=== PATIENT | male | born 1965 | race Caucasian/White ===

== ENCOUNTER 2024-08-13 13:04 | Observation (INO) ==
[2024-08-13] MEDS: ASPIRIN 81 MG CHEWTAB PO ONE (13:14)
[2024-08-13] MEDS: ZOFRAN INJ 4 MG VIAL IVP ONE (13:14)
[2024-08-13 13:17] LABS: BASOPHILS # (AUTO) 0.2 X10^3/uL (0.0-0.1); BASOPHILS % (AUTO) 1.7 % (0.2-1.0); EOSINOPHILS % (AUTO) 0.3 % (0.9-2.9); HEMATOCRIT 46.6 % (42.0-54.0); HEMOGLOBIN 16.4 g/dL (13.5-18.0); MEAN CORPUSCULAR HEMOGLOBIN 31.5 pg (27.0-34.0); MEAN CORPUSCULAR HGB CONC 35.3 g/dL (33.0-35.0); MEAN CORPUSCULAR VOLUME 89.3 fL (80.0-100.0); MEAN PLATELET VOLUME 7.4 fL (7.4-11.0); MONOCYTES # (AUTO) 0.5 x10^3/uL (0.3-0.8); MONOCYTES % (AUTO) 4.9 % (0.0-13.0); NEUTROPHILS % (AUTO) 83.1 % (42.0-75.0); PLATELET COUNT 231 X10^3/uL (150.0-450.0); RED BLOOD COUNT 5.22 X10^6/uL (4.7-6.0); RED CELL DISTRIBUTION WIDTH 12.8 % (11.6-16.5); WHITE BLOOD COUNT 9.7 X10^3/uL (3.6-10.0)
--- NOTE | 2024-08-13 13:22 | EKG ---
Test Reason : SOB Blood Pressure : */* mmHG Vent. Rate : 93 BPM Atrial Rate : 93 BPM P-R Int : 166 ms QRS Dur : 96 ms QT Int : 348 ms P-R-T Axes : 44 84 36 degrees QTc Int : 432 ms Sinus rhythm with occasional premature ventricular complexes Otherwise normal ECG No previous ECGs available Confirmed by Corey Palacio MD ([id number]) on 08/14/2024 6:53:21 AM Referred By: Confirmed By: Corey Palacio MD
[2024-08-13] MEDS: MORPHINE SULFATE INJ 4 MG IVP ONE (13:23)
[2024-08-13] MEDS: MORPHINE SULFATE INJ 2 MG INJ IVP ONE ×2 (13:23→13:38)
[2024-08-13 13:31] LABS: ALANINE AMINOTRANSFERASE 27 Units/L (12-78); ALBUMIN 4.2 g/dL (3.4-5.0); ALKALINE PHOSPHATASE 105 Units/L (46-116); ASPARTATE AMINO TRANSFERASE 17 Units/L (15-37); BLOOD UREA NITROGEN 21 mg/dL (7-18); CARBON DIOXIDE 25.2 mmol/L (21-32); CHLORIDE 105 mmol/L (98-107); COR NA(FOR HYPERGLY) 139 mmol/L (136-145); CREATINE KINASE 71 Units/L (39-308); CREATININE 1.11 mg/dL (0.70-1.30); GLUCOSE 125 mg/dL (65-99); POTASSIUM 4.3 mmol/L (3.5-5.1); SODIUM 138 mmol/L (136-145); TOTAL PROTEIN 8.2 g/dL (6.4-8.2); eGFR NON BLACK RACES > 60 (>60)
--- NOTE | 2024-08-13 13:46 | DR.CP ---
HPI Time Seen Time Seen by Provider: 08/13/24 13:34 PCP Primary Care Physician: Tierra Kirkland Complaint Chief Complaint Doctor Comments: pain in mid chest Chief Complaint:: Pt states that last pm he started having mid-sternal chest pain that is non-radiating. Pt describes the pain as making him feel like it is hard to breath but he denies shortness of breath. Pt denies any associated symptoms. Pts reports that he has taken asa 81 mg, tylenol 1000 mg, motrin 800 mg, and klonipin 0.5 mg prior to arrival. Pt states that these medications did help some but then the pain came back worse. Pt reports that he had an orthopedic surgery on his right arm on August 10, 2024 Self Treatment fo Chief Complaint: asa 81 mg tylenol 1000 mg motrin 800 mg klonipin 0.5 mg COVID-19 Coronavirus risk:travel/contact w/high risk person: No Has patient experienced Coronavirus symptoms: No Reviewed Nurses Notes Review: Yes Source History Provided: Patient Mode of Arrival Mode of Arrival: Ambulatory Timing Onset of Chief Complaint: 08/12/24 Came on: Suddenly Pain: Present Now Duration Duration: Intermittent Duration: Minutes Location Location of Chest Pain: Chest Chest Pain Radiation Location: None Context Onset: At rest and Other (after eating ) Cardiac Risk Factors: Hyperlipidemia and HTN PE Risk Factors: Recent Trauma/Surgery History of: None and Aspirin in last 24 hours Prehospital Care: ASA Quality Quality: Sharp Severity Severity: Severe Modifying Factors Worsens: Nothing Impoves: Nothing Associated Signs and Symptoms Associated Signs and Symptoms: Shortness of Breath PMH PMH Past Medical History: Yes Past Medical History: Arthritis and Hypertension Past Medical History Comment: PTSD Past Surgical History: Yes Surgical History: Appendectomy, Ortho Surgery, Tonsillectomy and Other Past Surgical History Comment: hernia repair jaw surgery Family History History of Family Medical Conditions: Yes Family Medical History: Cancer, [place] and Coronary Artery Disease Social History Alcohol Use: None Do you use any recreational Drugs:: No Lives With: Spouse Travel Risk Coronavirus risk:travel/contact w/high risk person: No Has patient experienced Coronavirus symptoms: No Infectious screening In the last 2 months have you had wt loss of >10#?: NO Have you had fever, night sweats or hemotysis?: No Have you traveled outside the country in the last 6 months?: No Isolation: Standard ROS Review of Systems Constitutional: Irritable and Fatigue Eyes: No Symptoms Reported ENTM: No Symptoms Reported Respiratoy: Short of Breath Cardiovascular: Chest Pain Gastrointestinal/Abdominal: No Symptoms Reported Genitourinary: No Symptoms Reported Neurological: No Symptoms Reported Musculoskeletal: No Symptoms Reported Integumentary: No Symptoms Reported PE Vitals Vitals: Vital Signs Temperature 98.2 F Pulse Rate 85 Pulse Rate 86 Pulse Rate 85 Pulse Rate 84 Pulse Rate 83 Pulse Rate 83 Pulse Rate 85 Pulse Rate 89 Pulse Rate 86 Pulse Rate 95 Pulse Rate 97 Pulse Rate 96 Respiratory Rate 15 Respiratory Rate 0 Respiratory Rate 15 Respiratory Rate 10 Respiratory Rate 14 Respiratory Rate 14 Respiratory Rate 13 Respiratory Rate 13 Respiratory Rate 21 Respiratory Rate 22 Respiratory Rate 19 Respiratory Rate 19 Respiratory Rate 19 Respiratory Rate 23 Respiratory Rate 23 Respiratory Rate 13 Respiratory Rate 9 Respiratory Rate 20 Blood Pressure 145/86 Blood Pressure 142/86 Blood Pressure 140/74 Blood Pressure 140/74 Blood Pressure 140/74 Blood Pressure 151/89 Blood Pressure 138/83 Blood Pressure 146/91 Blood Pressure 155/100 O2 Sat by Pulse Oximetry 96 O2 Sat by Pulse Oximetry 95 O2 Sat by Pulse Oximetry 96 O2 Sat by Pulse Oximetry 93 O2 Sat by Pulse Oximetry 94 O2 Sat by Pulse Oximetry 94 O2 Sat by Pulse Oximetry 94 O2 Sat by Pulse Oximetry 93 O2 Sat by Pulse Oximetry 94 O2 Sat by Pulse Oximetry 95 O2 Sat by Pulse Oximetry 95 O2 Sat by Pulse Oximetry 94 O2 Sat by Pulse Oximetry 95 General Limitations: No Limitations General Appearance: In Distress Head Head Exam: Normal Inspection and Atraumatic Eyes Eye exam: Normal Appearance, PERRL and EOMI ENT ENT Exam: Normal Exam and Mucous Membranes Moist Chest Chest Inspection: Normal Inspection and Symmetric Chest Wall Rise Respiratory Respiratory Exam: Normal Lung Sounds Bilat Respiratory Exam: Bilateral: Clear to Auscultation Cardiovascular Cardiovascular Exam: +S1 and +S2 Abdominal Exam Abdominal Exam: Normal Inspection, Normal Bowel Sounds, Soft and Tenderness Abdominal Tenderness: RUQ Extremities Extremities Exam: Other (right upper ext recent surgery in splint with dressing ) Skin Skin Exam: Normal Color MDM Differential Diagnosis Differential Diagnosis: Angina, Cholelithasis, Esophageal Reflux/Spasm, Myocardial Infarction and Pulmonary Embolus COURSE Treatment Treatment: labs ,ekg ct abdomen /pelvis ,IV morphine,asa G i cOCKTAIL, Reevaluation 1st: Unchanged ROR Labs Reviewed Laboratory Results Reviewed?: Yes 08/13/24 13:11 08/13/24 13:11 Laboratory: WBC 9.7 X10^3/uL (3.6-10.0) 08/13/24 13:11 RBC 5.22 X10^6/uL (4.7-6.0) 08/13/24 13:11 Hgb 16.4 g/dL (13.5-18.0) 08/13/24 13:11 Hct 46.6 % (42.0-54.0) 08/13/24 13:11 MCV 89.3 fL (80.0-100.0) 08/13/24 13:11 MCH 31.5 pg (27.0-34.0) 08/13/24 13:11 MCHC 35.3 g/dL (33.0-35.0) H 08/13/24 13:11 RDW 12.8 % (11.6-16.5) 08/13/24 13:11 Plt Count 231 X10^3/uL (150.0-450.0) 08/13/24 13:11 MPV 7.4 fL (7.4-11.0) 08/13/24 13:11 Neut % (Auto) 83.1 % (42.0-75.0) H 08/13/24 13:11 Lymph % (Auto) 10.0 % (21.0-51.0) L 08/13/24 13:11 [place] % (Auto) 4.9 % (0.0-13.0) 08/13/24 13:11 Eos % (Auto) 0.3 % (0.9-2.9) L 08/13/24 13:11 Baso % (Auto) 1.7 % (0.2-1.0) H 08/13/24 13:11 Neut # (Auto) 8.0 x10^3/uL (2.2-4.8) H 08/13/24 13:11 Lymph # (Auto) 1.0 X10^3/uL (1.3-2.9) L 08/13/24 13:11 [place] # (Auto) 0.5 x10^3/uL (0.3-0.8) 08/13/24 13:11 Eos # (Auto) 0.0 x10^3/uL (0.0-0.2) 08/13/24 13:11 Baso # (Auto) 0.2 X10^3/uL (0.0-0.1) H 08/13/24 13:11 Absolute Nucleated RBC 0.1 /100WBC 08/13/24 13:11 D-Dimer 0.42 ug/ml (0.0-0.57) 08/13/24 13:11 Sodium 138 mmol/L (136-145) 08/13/24 13:11 Corrected Sodium 139 mmol/L (136-145) 08/13/24 13:11 Potassium 4.3 mmol/L (3.5-5.1) 08/13/24 13:11 Chloride 105 mmol/L (98-107) 08/13/24 13:11 Carbon Dioxide 25.2 mmol/L (21-32) 08/13/24 13:11 BUN 21 mg/dL (7-18) H 08/13/24 13:11 Creatinine 1.11 mg/dL (0.70-1.30) 08/13/24 13:11 Est GFR (MDRD) Af Amer > 60 (>60) 08/13/24 13:11 Est GFR (MDRD) Non-Af > 60 (>60) 08/13/24 13:11 Glucose 125 mg/dL (65-99) H 08/13/24 13:11 Calcium 9.0 mg/dL (8.5-10.1) 08/13/24 13:11 Corrected Calcium TNP 08/13/24 13:11 Total Bilirubin 1.30 mg/dL (0.2-1.0) H 08/13/24 13:11 Direct Bilirubin 0.30 mg/dL (0-0.2) H 08/13/24 13:11 AST 17 Units/L (15-37) 08/13/24 13:11 ALT 27 Units/L (12-78) 08/13/24 13:11 Alkaline Phosphatase 105 Units/L (46-116) 08/13/24 13:11 Creatine Kinase 71 Units/L (39-308) 08/13/24 13:11 Troponin I High Sens 6.5 ng/L (4.0-60.0) 08/13/24 15:05 B-Natriuretic Peptide 23.9 pg/mL (0-79) 08/13/24 15:05 Total Protein 8.2 g/dL (6.4-8.2) 08/13/24 13:11 Albumin 4.2 g/dL (3.4-5.0) 08/13/24 13:11 Globulin 4.0 g/dL (2.5-4.5) 08/13/24 13:11 Albumin/Globulin Ratio 1.1 Ratio (1.1-2.1) 08/13/24 13:11 Opioid Opioid Risk Tool Age (Jasvir box if 16-45): No History of Preadolescent Sexual Abuse: No Total: 0 Total Score Risk Category: Low Risk Copyright: [facility] predicting aberrant behaviors Discharge Plan Diagnosis Discharge Problem: Pleurisy, Retrosternal chest pain Discharge Plan Patient Disposition: ADMITTED INPATIENT Condition: Stable Prescriptions: No Action atorvastatin 20 MG tablet 20 mg PO HS Qty: 30 3RF Rx Instructions: TAKE 1 TABLET BY MOUTH AT BEDTIME. lisinopril [Zestril] 5 MG tablet 5 mg PO DAILY Qty: 30 3RF Rx Instructions: TAKE 1 TABLET BY MOUTH DAILY. ketorolac 10 mg tablet 10 mg PO TID PRN (Reason: pain) Qty: 20 0RF Health Concerns: Post Hospitalization: new medications and changes needed to prevent readmission or further decline. Pt educated and given instructions on all concerns. Plan of Treatment: Continue with present treatment and follow up plan. Pt is to keep follow up appointment as instructed and take medications as ordered. Orders to Discharge Patient Discharge Orders: Transfer (Routine); Ordered 08/13/24 Ordered By: David Caldwell Follow ups/Referrals Follow ups/Referrals: QUYEN KIRKLAND [Primary Care Provider, Unknown] - 3 days Instructions Stand Alone Forms: Find Help Web Site, Post Hospital Follow Up Care Print Language: ICELANDIC ADDITIONAL NOTES Additional Notes Additional Notes: pt cont to experience pain in chest substernal and when he takes deep breath. cardiac enzymes x 2 neg , BNP neg .cxr ? fluid / infiltrate . CT abdomen /pelvis. no acute pathology.Spoke with dr Howard .Agreed to have patient admitted for observation .repeat troponin in 6 hrs
[2024-08-13] MEDS: LEVSIN/MAALOX/LIDOC VISC PO ONE (14:29)
--- NOTE | 2024-08-13 14:29 | CT ---
EXAM: CT ABDOMEN AND PELVIS WITH CONTRAST HISTORY: ABDOMINAL PAIN ; COMPARISON: None. TECHNIQUE: Axial CT images were obtained through the abdomen and pelvis after the intravenous administration of contrast. Coronal reformatted images were included. Informed written consent was obtained prior to contrast administration. All CT scans at this facility use dose modulation, iterative reconstruction, and/or weight based dosing when appropriate to reduce radiation dose to as low as reasonably achievable. FINDINGS: LOWER THORAX: Hypoventilatory changes of the lung bases. ABDOMEN: LIVER: Within normal limits. GALLBLADDER: Within normal limits. SPLEEN: Within normal limits. PANCREAS: Within normal limits. KIDNEYS: Tiny subcentimeter renal cysts bilaterally ADRENAL GLANDS: Within normal limits. GI TRACT: Sigmoid diverticulosis. No inflammatory changes or obstruction LYMPH NODES: No abnormally enlarged nodes. VESSELS: Within normal limits. PERITONEUM / RETROPERITONEUM: No free gas. PELVIS: BLADDER: Within normal limits. GENITALS: Within normal limits. BONES: Within normal limits. IMPRESSION: No acute abnormality in the abdomen or pelvis. No obstruction. No inflammatory changes. Sigmoid diverticulosis without diverticulitis THIS IS AN ELECTRONICALLY VERIFIED FINAL REPORT 08/13/2024 2:26 PM - Electronically signed by Lambert Holder MD
--- NOTE | 2024-08-13 15:01 | RAD ---
EXAM: CHEST, 1 VIEW HISTORY: CHEST PAIN ; COMPARISON: Two views of the chest October 29, 2018 TECHNIQUE: 1 frontal view of the chest FINDINGS: Heart silhouette is enlarged. There is distention of the pulmonary vasculature. Interstitial and airspace opacities are present bilaterally. No pneumothorax. IMPRESSION: Decompensated congestive heart failure is favored. Pneumonia is not excluded radiographically. THIS IS AN ELECTRONICALLY VERIFIED FINAL REPORT 08/13/2024 2:57 PM - Electronically signed by Venkata Loredo MD
[2024-08-13] MEDS: TORADOL 30 MG VIAL IVP ONE (15:30)
[2024-08-13] MEDS ORDERED: PROTONIX INJ 40 MG VIAL ONE (16:01)
[2024-08-13] MEDS: DECADRON INJ IVP ONE (16:02)
[2024-08-13] MEDS: PROTONIX INJ 40 MG VIAL IVP ONE (16:02)
[2024-08-13] MEDS: DILAUDID INJ IVP ONE (16:02)
[2024-08-13 17:58] VITALS: BMI 28.0
[2024-08-13] MEDS: PROTONIX INJ 40 MG VIAL IVP SCH (20:23)
[2024-08-13] MEDS: ZOFRAN INJ 4 MG VIAL ONE (20:38)
[2024-08-13] MEDS: ASPIRIN 81 MG CHEWTAB ONE (20:38)
[2024-08-13] MEDS: OMNIPAQUE 350 mg/mL 100 mL BTL 100 ML ONE (20:39)
[2024-08-13] MEDS: DECADRON INJ ONE (20:39)
[2024-08-13] MEDS: TORADOL 15 MG VIAL IVP SCH (23:08)
[2024-08-14] MEDS: DILAUDID INJ ONE (03:32)
[2024-08-14 04:34] LABS: BASOPHILS % (AUTO) 0.2 % (0.2-1.0); EOSINOPHILS % (AUTO) 0.1 % (0.9-2.9); HEMATOCRIT 46.3 % (42.0-54.0); HEMOGLOBIN 16.6 g/dL (13.5-18.0); LYMPHOCYTES # (AUTO) 0.7 X10^3/uL (1.3-2.9); LYMPHOCYTES % (AUTO) 7.1 % (21.0-51.0); MEAN CORPUSCULAR HEMOGLOBIN 31.8 pg (27.0-34.0); MEAN CORPUSCULAR HGB CONC 35.7 g/dL (33.0-35.0); MEAN CORPUSCULAR VOLUME 88.8 fL (80.0-100.0); MEAN PLATELET VOLUME 7.7 fL (7.4-11.0); MONOCYTES # (AUTO) 0.6 x10^3/uL (0.3-0.8); MONOCYTES % (AUTO) 5.5 % (0.0-13.0); NEUTROPHILS # (AUTO) 8.8 x10^3/uL (2.2-4.8); NEUTROPHILS % (AUTO) 87.1 % (42.0-75.0); PLATELET COUNT 226 X10^3/uL (150.0-450.0); RED BLOOD COUNT 5.22 X10^6/uL (4.7-6.0); RED CELL DISTRIBUTION WIDTH 12.9 % (11.6-16.5); WHITE BLOOD COUNT 10.2 X10^3/uL (3.6-10.0)
[2024-08-14 04:47] LABS: ALANINE AMINOTRANSFERASE 28 Units/L (12-78); ALBUMIN 3.6 g/dL (3.4-5.0); ALKALINE PHOSPHATASE 92 Units/L (46-116); ASPARTATE AMINO TRANSFERASE 10 Units/L (15-37); BLOOD UREA NITROGEN 17 mg/dL (7-18); CALCIUM 8.7 mg/dL (8.5-10.1); CARBON DIOXIDE 25.5 mmol/L (21-32); CHLORIDE 103 mmol/L (98-107); COR NA(FOR HYPERGLY) 137 mmol/L (136-145); CREATININE 1.05 mg/dL (0.70-1.30); GLUCOSE 160 mg/dL (65-99); POTASSIUM 4.3 mmol/L (3.5-5.1); SODIUM 136 mmol/L (136-145); TOTAL PROTEIN 6.9 g/dL (6.4-8.2); eGFR NON BLACK RACES > 60 (>60)
--- NOTE | 2024-08-14 05:59 | RAD ---
PROCEDURE: Chest X-ray 1 View. HISTORY: chest pain; HX: HTN . TECHNIQUE: AP view. COMPARISON: 08/13/2024. TECHNICAL QUALITY: Satisfactory. FINDINGS: Normal size heart. Mediastinum and hilar regions show no masses or lymphadenopathy. Normal central vascularity. No pulmonary consolidation, masses, pleural fluid, or pneumothorax. No acute bony abnormality. IMPRESSION: No evidence of active cardiopulmonary disease. THIS IS AN ELECTRONICALLY VERIFIED FINAL REPORT 08/14/2024 5:55 AM - Electronically signed by Duke Loera MD
[2024-08-14] MEDS: VALTREX PO SCH (10:52)
[2024-08-14] MEDS: WELLBUTRIN XL 300 MG (DAILY) PO SCH (10:52)
[2024-08-14] MEDS: TOPROL XL PO SCH (10:52)
[2024-08-14] MEDS: NORVASC TAB 2.5 MG PO SCH (10:52)
[2024-08-14] MEDS: COZAAR PO SCH (10:52)
[2024-08-14] MEDS: NORVASC TAB 2.5 MG ONE (11:07)
[2024-08-14] MEDS: TORADOL 15 MG VIAL ONE (11:08)
[2024-08-14] MEDS: TYLENOL 325 MG TAB PO PRN (15:23)
--- NOTE | 2024-08-14 15:30 | DR.H&P ---
H&P History & Physical for Day of: H&P Date: 08/14/24 Chief Complaint Chief Complaint: chest pain History of Present Illness History of Present Illness: Seen with family in nurse at bedside. Sudden onset of midsternal, deep chest pain Thursday night. Lasted into Thursday and spouse convinced him to go to the ER. Had had right ulnar nerve decompression surgery last Thursday. Does have a history of sleep apnea and does not wear his CPAP. Also has history of exposure to burn pits in [place]. [facility] Reports well-controlled blood pressure at home. Did get Toradol and steroids in the ER. Does feel like he is breathing a little easier today than he was yesterday but still hurts to take a deep breath and has a discomfort that is underneath the distal part of his sternum. Troponins have been negative, chest x-ray benign, and ab/pelvis CT with contrast with no acute process. CT did show hypoventilatory effect of the bilateral lower lobes. He is agreeable to proceed with an EGD tomorrow. PMH, PSH, social history, and family history reviewed. ROS: 12 point ROS negative except as noted in HPI. Vitals, labs, and imaging reviewed. PE: Well-developed, well-nourished male in no acute distress. Hearing intact conversation, head NCAT, EOMI, cervical spine F ROM. Heart regular rate and rhythm. Lungs are clear with good respiratory effort but grimacing on deep breathing. Pain is not reproducible on palpation and percussion of the chest wall. No tenderness with pressure to the costosternal border bilaterally. Belly is soft and nontender with bowel sounds present. Landon sign negative. Mood and affect are appropriate. Right arm is in an elastic wrap. Past Medical History Past Medical History: Arthritis and Hypertension Past Surgical History Surgical History: Appendectomy, Ortho Surgery, Tonsillectomy and Other Family History Family Medical History: Cancer, [place] and Coronary Artery Disease Social History Does patient currently use any type of tobacco product: No Type of Tobacco Use: None Alcohol Use: None Drug Use: None Medications Home Medications: Home Medications Medication Instructions Recorded Confirmed Type amlodipine 2.5 mg tablet 2.5 mg PO QDAY 08/13/24 05/04/09 History bupropion HCl 300 mg 24 hr tablet, 300 mg PO QAM 08/1308/13/24 History extended release (Wellbutrin XL) losartan 100 mg tablet 100 mg PO QDAY 08/13/2407/16 History metoprolol succinate 25 mg 25 mg PO QDAY 08/13/2407/16 History tablet,extended release 24 hr valacyclovir 1 gram tablet 1,000 mg PO Q OTHER DAY 08/13/24 History (Valtrex) Allergies Allergies Allergy/AdvReac Type Severity Reaction Status Date / Time No Known Drug Allergies Allergy Verified 08/13/24 13:20 Labs 08/14/24 04:11 08/14/24 04:11 Labs: Laboratory WBC 10.2 X10^3/uL (3.6-10.0) H 08/14/24 04:11 RBC 5.22 X10^6/uL (4.7-6.0) 08/14/24 04:11 Hgb 16.6 g/dL (13.5-18.0) 08/14/24 04:11 Hct 46.3 % (42.0-54.0) 08/14/24 04:11 MCV 88.8 fL (80.0-100.0) 08/14/24 04:11 MCH 31.8 pg (27.0-34.0) 08/14/24 04:11 MCHC 35.7 g/dL (33.0-35.0) H 08/14/24 04:11 RDW 12.9 % (11.6-16.5) 08/14/24 04:11 Plt Count 226 X10^3/uL (150.0-450.0) 08/14/24 04:11 MPV 7.7 fL (7.4-11.0) 08/14/24 04:11 Neut % (Auto) 87.1 % (42.0-75.0) H 08/14/24 04:11 Lymph % (Auto) 7.1 % (21.0-51.0) L 08/14/24 04:11 [place] % (Auto) 5.5 % (0.0-13.0) 08/14/24 04:11 Eos % (Auto) 0.1 % (0.9-2.9) L 08/14/24 04:11 Baso % (Auto) 0.2 % (0.2-1.0) 08/14/24 04:11 Neut # (Auto) 8.8 x10^3/uL (2.2-4.8) H 08/14/24 04:11 Lymph # (Auto) 0.7 X10^3/uL (1.3-2.9) L 08/14/24 04:11 [place] # (Auto) 0.6 x10^3/uL (0.3-0.8) 08/14/24 04:11 Eos # (Auto) 0.0 x10^3/uL (0.0-0.2) 08/14/24 04:11 Baso # (Auto) 0.0 X10^3/uL (0.0-0.1) 08/14/24 04:11 Absolute Nucleated RBC 0.0 /100WBC 08/14/24 04:11 D-Dimer 0.42 ug/ml (0.0-0.57) 08/13/24 13:11 Sodium 136 mmol/L (136-145) 08/14/24 04:11 Corrected Sodium 137 mmol/L (136-145) 08/14/24 04:11 Potassium 4.3 mmol/L (3.5-5.1) 08/14/24 04:11 Chloride 103 mmol/L (98-107) 08/14/24 04:11 Carbon Dioxide 25.5 mmol/L (21-32) 08/14/24 04:11 BUN 17 mg/dL (7-18) 08/14/24 04:11 Creatinine 1.05 mg/dL (0.70-1.30) 08/14/24 04:11 Est GFR (MDRD) Af Amer > 60 (>60) 08/14/24 04:11 Est GFR (MDRD) Non-Af > 60 (>60) 08/14/24 04:11 Glucose 160 mg/dL (65-99) H 08/14/24 04:11 Calcium 8.7 mg/dL (8.5-10.1) 08/14/24 04:11 Corrected Calcium TNP 08/14/24 04:11 Total Bilirubin 0.90 mg/dL (0.2-1.0) 08/14/24 04:11 Direct Bilirubin 0.30 mg/dL (0-0.2) H 08/13/24 13:11 AST 10 Units/L (15-37) L 08/14/24 04:11 ALT 28 Units/L (12-78) 08/14/24 04:11 Alkaline Phosphatase 92 Units/L (46-116) 08/14/24 04:11 Creatine Kinase 49 Units/L (39-308) 08/13/24 22:05 Troponin I High Sens 8.7 ng/L (4.0-60.0) 08/13/24 22:05 B-Natriuretic Peptide 23.9 pg/mL (0-79) 08/13/24 15:05 Total Protein 6.9 g/dL (6.4-8.2) 08/14/24 04:11 Albumin 3.6 g/dL (3.4-5.0) 08/14/24 04:11 Globulin 3.3 g/dL (2.5-4.5) 08/14/24 04:11 Albumin/Globulin Ratio 1.1 Ratio (1.1-2.1) 08/14/24 04:11 Physical Exam Vital Signs: Vital Signs Temperature 98.3 F Temperature 97.6 F Pulse Rate [Right] 78 Pulse Rate [Right] 78 Respiratory Rate 16 Respiratory Rate 17 Respiratory Rate 16 Respiratory Rate 18 Blood Pressure [Left Arm] 133/78 Blood Pressure [Left Arm] 119/72 O2 Sat by Pulse Oximetry 95 O2 Sat by Pulse Oximetry 96 Assessment/Plan (1) Retrosternal chest pain: Narrative Support Text: Plan to proceed with an EGD tomorrow. Will consult general surgery. Continue Protonix. Status: Acute (2) Pleurisy: Narrative Support Text: Suspect this is the likely source of his pain. Continue Toradol. Will add on Tylenol p.o. as needed. Status: Acute (3) Essential (primary) hypertension: Narrative Support Text: Continue home meds Status: Acute
[2024-08-14] MEDS: TORADOL 30 MG VIAL ONE (19:10)
[2024-08-14] MEDS: MORPHINE SULFATE INJ 2 MG INJ ONE (19:10)
[2024-08-14] MEDS: DECADRON INJ IVP ONE (20:08)
[2024-08-15 05:46] LABS: BASOPHILS % (AUTO) 0.5 % (0.2-1.0); EOSINOPHILS # (AUTO) 0.1 x10^3/uL (0.0-0.2); EOSINOPHILS % (AUTO) 0.7 % (0.9-2.9); HEMATOCRIT 43.5 % (42.0-54.0); HEMOGLOBIN 15.4 g/dL (13.5-18.0); LYMPHOCYTES # (AUTO) 1.7 X10^3/uL (1.3-2.9); LYMPHOCYTES % (AUTO) 21.3 % (21.0-51.0); MEAN CORPUSCULAR HEMOGLOBIN 31.4 pg (27.0-34.0); MEAN CORPUSCULAR HGB CONC 35.3 g/dL (33.0-35.0); MEAN PLATELET VOLUME 7.8 fL (7.4-11.0); MONOCYTES # (AUTO) 0.6 x10^3/uL (0.3-0.8); NEUTROPHILS # (AUTO) 5.6 x10^3/uL (2.2-4.8); NEUTROPHILS % (AUTO) 69.5 % (42.0-75.0); PLATELET COUNT 234 X10^3/uL (150.0-450.0); RED BLOOD COUNT 4.89 X10^6/uL (4.7-6.0); WHITE BLOOD COUNT 8.1 X10^3/uL (3.6-10.0)
[2024-08-15 05:56] LABS: ALANINE AMINOTRANSFERASE 25 Units/L (12-78); ALBUMIN 3.2 g/dL (3.4-5.0); ALKALINE PHOSPHATASE 79 Units/L (46-116); ASPARTATE AMINO TRANSFERASE 10 Units/L (15-37); BLOOD UREA NITROGEN 24 mg/dL (7-18); CALCIUM 8.3 mg/dL (8.5-10.1); CARBON DIOXIDE 25.7 mmol/L (21-32); CHLORIDE 106 mmol/L (98-107); COR CA(FOR HYPOALB) 8.9 mg/dL (8.5-10.1); CREATININE 1.09 mg/dL (0.70-1.30); GLUCOSE 108 mg/dL (65-99); POTASSIUM 3.7 mmol/L (3.5-5.1); SODIUM 143 mmol/L (136-145); TOTAL PROTEIN 6.4 g/dL (6.4-8.2); eGFR NON BLACK RACES > 60 (>60)
[2024-08-15] MEDS ORDERED: CONSULT PHARMACY - POTASSIUM & MAGNESIUM XX SCH (07:00)
[2024-08-15] MEDS ORDERED: K-DUR TAB 20 MEQ PO SCH (09:00)
[2024-08-15] MEDS: XYLOCAINE 2 % (PLAIN) ONE (11:11)
[2024-08-15] MEDS: DIPRIVAN VIAL 20 ML ONE (11:11)
[2024-08-15] MEDS ORDERED: XYLOCAINE 2 % (PLAIN) ONE (11:20)
[2024-08-15] MEDS ORDERED: DIPRIVAN VIAL ONE (11:20)
[2024-08-15] MEDS: LR 1,000 ML IV 1,000 ML IV ONE (11:20)
--- NOTE | 2024-08-15 12:48 | PCM.DCPLAN ---
DISCHARGE SUMMARY Admission Date Date of Admission: 08/13/24 Discharge Date Discharge Date: 08/15/24 Admission Diagnoses (1) Retrosternal chest pain: Status: Acute (2) Pleurisy: Status: Acute (3) Essential (primary) hypertension: Status: Acute Discharge Medications Discharge Medications: Home Medication List amlodipine 2.5 mg tablet 2.5 mg PO QDAY 08/13/24 [History] bupropion HCl 300 mg 24 hr tablet, extended release (Wellbutrin XL) 300 mg PO QAM 08/13/24 [History] losartan 100 mg tablet 100 mg PO QDAY 08/13/24 [History] metoprolol succinate 25 mg tablet,extended release 24 hr 25 mg PO QDAY 08/13/24 [History] valacyclovir 1 gram tablet (Valtrex) 1,000 mg PO Q OTHER DAY 08/13/24 [History] Prescriptions: Hospital Course Vital Signs: Vital Signs Temperature 97.5 F Temperature 98.2 F Pulse Rate [Right] 75 Pulse Rate [Right] 69 Respiratory Rate 20 Respiratory Rate 18 Respiratory Rate 20 Respiratory Rate 20 Blood Pressure [Left Arm] 135/74 Blood Pressure [Left Arm] 137/83 O2 Sat by Pulse Oximetry 95 O2 Sat by Pulse Oximetry 94 Latest Lab Results: Laboratory Last Values WBC 8.1 X10^3/uL (3.6-10.0) 08/15/24 05:36 RBC 4.89 X10^6/uL (4.7-6.0) 08/15/24 05:36 Hgb 15.4 g/dL (13.5-18.0) 08/15/24 05:36 Hct 43.5 % (42.0-54.0) 08/15/24 05:36 MCV 89.0 fL (80.0-100.0) 08/15/24 05:36 MCH 31.4 pg (27.0-34.0) 08/15/24 05:36 MCHC 35.3 g/dL (33.0-35.0) H 08/15/24 05:36 RDW 13.0 % (11.6-16.5) 08/15/24 05:36 Plt Count 234 X10^3/uL (150.0-450.0) 08/15/24 05:36 MPV 7.8 fL (7.4-11.0) 08/15/24 05:36 Neut % (Auto) 69.5 % (42.0-75.0) 08/15/24 05:36 Lymph % (Auto) 21.3 % (21.0-51.0) 08/15/24 05:36 [place] % (Auto) 8.0 % (0.0-13.0) 08/15/24 05:36 Eos % (Auto) 0.7 % (0.9-2.9) L 08/15/24 05:36 Baso % (Auto) 0.5 % (0.2-1.0) 08/15/24 05:36 Neut # (Auto) 5.6 x10^3/uL (2.2-4.8) H 08/15/24 05:36 Lymph # (Auto) 1.7 X10^3/uL (1.3-2.9) 08/15/24 05:36 [place] # (Auto) 0.6 x10^3/uL (0.3-0.8) 08/15/24 05:36 Eos # (Auto) 0.1 x10^3/uL (0.0-0.2) 08/15/24 05:36 Baso # (Auto) 0.0 X10^3/uL (0.0-0.1) 08/15/24 05:36 Absolute Nucleated RBC 0.0 /100WBC 08/15/24 05:36 D-Dimer 0.42 ug/ml (0.0-0.57) 08/13/24 13:11 Sodium 143 mmol/L (136-145) 08/15/24 05:36 Corrected Sodium TNP 08/15/24 05:36 Potassium 3.7 mmol/L (3.5-5.1) 08/15/24 05:36 Chloride 106 mmol/L (98-107) 08/15/24 05:36 Carbon Dioxide 25.7 mmol/L (21-32) 08/15/24 05:36 BUN 24 mg/dL (7-18) H 08/15/24 05:36 Creatinine 1.09 mg/dL (0.70-1.30) 08/15/24 05:36 Est GFR (MDRD) Af Amer > 60 (>60) 08/15/24 05:36 Est GFR (MDRD) Non-Af > 60 (>60) 08/15/24 05:36 Glucose 108 mg/dL (65-99) H 08/15/24 05:36 Calcium 8.3 mg/dL (8.5-10.1) L 08/15/24 05:36 Corrected Calcium 8.9 mg/dL (8.5-10.1) 08/15/24 05:36 Magnesium 2.1 mg/dL (2.0-2.9) 08/15/24 05:36 Total Bilirubin 0.50 mg/dL (0.2-1.0) 08/15/24 05:36 Direct Bilirubin 0.30 mg/dL (0-0.2) H 08/13/24 13:11 AST 10 Units/L (15-37) L 08/15/24 05:36 ALT 25 Units/L (12-78) 08/15/24 05:36 Alkaline Phosphatase 79 Units/L (46-116) 08/15/24 05:36 Creatine Kinase 49 Units/L (39-308) 08/13/24 22:05 Troponin I High Sens 8.7 ng/L (4.0-60.0) 08/13/24 22:05 B-Natriuretic Peptide 23.9 pg/mL (0-79) 08/13/24 15:05 Total Protein 6.4 g/dL (6.4-8.2) 08/15/24 05:36 Albumin 3.2 g/dL (3.4-5.0) L 08/15/24 05:36 Globulin 3.2 g/dL (2.5-4.5) 08/15/24 05:36 Albumin/Globulin Ratio 1.0 Ratio (1.1-2.1) L 08/15/24 05:36 Hospital Course: Patient to the ER from home due to worsening substernal chest pain. Had to have a surgery 3 days prior for right ulnar decompression. He has not been on blood thinners. Has not been routinely taking NSAIDs. Cardiac workup was negative in the ER and abdomen/pelvic CT showed some hypoventilatory changes of the lower lobes but was otherwise benign. He was admitted with thoughts of pleurisy versus GI cause. He was feeling somewhat improved the next day but still having difficulties with deep breathing. Pain was still located in the same area. General surgery was consulted for plans to proceed with an EGD. He did undergo that this morning and it showed antral erosions and ulcers. Patient did report that he felt better overall this morning was able to finally take a deep breath. He has been discharged home in improved, stable conditions with instructions to avoid NSAIDs. He is to take Protonix 40 twice a day and Carafate 1 g 4 times daily. He will follow-up with me in the office next week. Follow-up with orthopedics as instructed by them.
[2024-08-15] MEDS ORDERED: CARAFATE PO SCH (14:00)
[2024-08-15 14:07] VITALS: RESP 18
[2024-08-15 14:09] VITALS: BP 143/83; PULSE 73; TEMP 97.6; O2SAT 97
[2024-08-15] MEDS ORDERED: PROTONIX INJ 40 MG VIAL IVP SCH (21:00)
== END 2024-08-15 13:00 | disposition home or self-care (01) ==
LOC: ER 13:04 → MED/SURG 13:04
PROVIDERS: ADMIT Family Medicine; ATTEND Family Medicine
DX: R73.09 Other abnormal glucose; R27.9 Unspecified lack of coordination; Z98.890 Other specified postprocedural states; E80.6 Other disorders of bilirubin metabolism; R07.89 Other chest pain; E87.5 Hyperkalemia; R26.81 Unsteadiness on feet; I10 Essential (primary) hypertension; R10.13 Epigastric pain; R10.9 Unspecified abdominal pain; K57.30 Diverticulosis of large intestine without perforation or abscess without bleeding; R06.02 Shortness of breath; R79.89 Other specified abnormal findings of blood chemistry; R09.1 Pleurisy; K29.00 Acute gastritis without bleeding; M62.81 Muscle weakness (generalized)